=== PATIENT | female | born 1950 | race Caucasian/White ===

== ENCOUNTER 2018-06-25 14:30 | Outpatient (REF) | payer MEDICARE, SELFPAY ==
[2018-06-25 21:57] LABS: Abs Immature Grans 0.01 k/cumm (0.0-0.09); Absolute Basophil Count 0.02 k/cumm (0.0-0.2); Absolute Eosinophil Count 0.16 k/cumm (0.0-0.7); Absolute Monocyte Count 0.83 k/cumm (0.11-0.7); Absolute Neutrophil Count 5.18 k/cumm (1.2-6.7); Basophils % 0.2; Eosinophils % 1.9; HCT 35.6 % (36.0-46.0); Immature Grans % 0.1; Lymphocytes % 27.1; Mean Corp. HGB Concentration 30.9 g/dL (32.0-36.0); Mean Corpuscular Hemoglobin 25.7 pg (27.0-33.0); Mean Corpuscular Volume 83.2 fL (80-95); Mean Platelet Volume 12.1 fL (8.0-11.0); Monocytes % 9.8; Neutrophils % 60.9; Platelet Count 376 x1000/uL (130-400); RBC 4.28 m/cumm (4.00-5.20); RBC Distribution Width 16.8 % (11.7-14.6)
[2018-06-25 22:17] LABS: ALT 21 U/L (12-78); AST 16 U/L (15-37); Albumin 3.6 g/dL (3.4-5.0); Alkaline Phosphatase 131 U/L (46-116); Anion Gap 11.7 mmol/L (3-11); BUN 12 mg/dL (7-18); Bilirubin, Total 0.3 mg/dL (0.2-1.0); CO2 28.3 mmol/L (21.0-32.0); CREATININE 0.76 mg/dL (0.55-1.02); Calcium 9.4 mg/dL (8.5-10.1); Chloride 100 mmol/L (98-107); Glucose 80 mg/dL (70-100); Potassium 4.3 mmol/L (3.5-5.1); Sodium 140 mmol/L (136-145); Total Protein 7.3 g/dL (6.4-8.2)
== END 2018-06-25 14:50 ==
LOC: NCHCN 14:30
PROVIDERS: Visit Provider Registered Nurse
DX: R82.90 Unspecified abnormal findings in urine (principal)
CPT/HCPCS: 80053; 87077; 85025; 87086; 87186

== ENCOUNTER 2018-07-05 12:02 | Outpatient (CLI) | payer MEDICARE, MEDICAID, SELFPAY ==
[2018-07-05] MEDS: Omnipaque 350 MG/ML 50 ML BTL PO (12:41)
[2018-07-05] MEDS: Breeza Beverage 473 ML BTL PO (12:42)
--- NOTE | 2018-07-05 13:06 | DI.CT_ITS ---
SYMPTOMS/DIAGNOSIS: ? LIVER LESION OR POSSIBLE ADJACENT BOWEL ON US, K76.89 CT OF THE ABDOMEN: Comparison is made with abdominal ultrasound from dated June,, which questioned a lesion in the left lobe of the liver. Images were performed from the lung bases through the aortic bifurcation after IV and oral contrast during arterial and venous phases. The patient is status post cholecystectomy. There is mild post cholecystectomy biliary dilatation. No liver lesion is identified. There is suture material throughout the fundus of the stomach that is related to gastric bypass. There is bowel directly adjacent to the left lobe of the liver. The spleen, pancreas and adrenals are unremarkable. There is a small cyst at the posterior right kidney. IMPRESSION: Mild biliary dilatation status post cholecystectomy. No evidence of a liver lesion.
== END 2018-07-05 12:22 ==
PROVIDERS: PCP Registered Nurse; Visit Provider Registered Nurse
DX: K76.89 Other specified diseases of liver (principal); K83.8 Other specified diseases of biliary tract; Z90.49 Acquired absence of other specified parts of digestive tract; Z98.84 Bariatric surgery status
CPT/HCPCS: 74160; Q9967

== ENCOUNTER 2018-11-27 15:38 | Emergency (ER) | payer OTHER, MEDICAID, SELFPAY ==
[2018-11-27 15:45] VITALS: BP 135/60; PULSE 83; RESP 18; TEMP 37.1; O2SAT 97
--- NOTE | 2018-11-27 15:53 | DI.CT_ITS ---
SYMPTOM/DIAGNOSIS: RT SIDED CHEST PAIN, UPPER ABD PAIN, S/P FALL CHEST/ABDOMEN/PELVIC CT: CT examination of the chest, abdomen and pelvis was performed with a bolus infusion of 100 cc's of Omnipaque 350. The lungs are clear. No pleural effusion or pneumothorax is seen. No mediastinal or hilar adenopathy. Bilateral shoulder prostheses noted in position, artifact obscures portions of the supraclavicular region. No evidence of mediastinal vascular injury. No mediastinal hematoma. There are bilateral hip prostheses. No vascular injury identified in the abdomen. Liver, spleen, pancreas and bile ducts are unremarkable. The patient is post cholecystectomy. No thoracic aortic aneurysm. No iliac artery aneurysm or injury. No evidence of bowel injury. No evidence of bowel obstruction. No significant abdominal wall hernia. No abdominal or pelvic adenopathy. DATE PULLER structures appear intact as visualized. There is no evidence of acute bony injury of the chest, abdomen or pelvis. CONCLUSION: No evidence of acute injury of the chest, abdomen or pelvis.
--- NOTE | 2018-11-27 15:56 | W.ED.GENAD ---
Discharge Plan Disposition Patient Disposition: HOME Condition: Good Discharge Details Chief Complaint: Chest/Rib Clinical Impression: Rib pain on right side, Rib lesion Primary Care Provider: PACO RIVERA ED Provider: Bakari Henry Home Meds and New Rx's Prescriptions: New cephalexin [Keflex] 500 mg capsule 500 mg PO BID 12 Days Qty: 24 RF: 0 lidocaine [Lidoderm] 1 PATCH patch 1 patch Topical Q24H Qty: 4 RF: 0 Continued acetaminophen [Acetaminophen Extra Strength] 500 mg Tablet PRNRF: 0 No Action omeprazole 20 mg Capsule,Delayed Release(Dr/Ec) 20 mg PO HS RF: 0 Discharge Instructions Instructions: Chest Wall Pain (ED) Additional Instructions: Please take the antibiotic as directed. Please follow-up promptly with your primary care provider for reassessment of the atypical rib lesion. Please use the incentive spirometer as directed and make sure that you are inhaling greater than 1200 cc, greater than 10-15 times per day. If you notice any worsening of your symptoms, or any new symptoms such as vomiting, diarrhea, fever, chills, shortness of breath, chest pain, numbness, weakness, or fainting , please return immediately to the emergency department for reevaluation. Please follow up with your primary care provider as soon as possible for reassessment and reevaluation. As always, it was a pleasure participating in your medical care today. Referrals: PACO RIVERA, MASTER BREWER [Primary Care Provider] - Medical Decision Making This is a pleasant 68-year-old female with a past medical history of orthopedic surgeries for her shoulders and knees, who presents for fall, landing on her right ribs. This occurred 3 to 4 days ago, she had mild pain at that time however when she was bending over today she noted a crack in her right chest, and has had severe pain since then. Exam demonstrates notable reproducible right-sided chest wall tenderness. Additionally she has some epigastric left and right upper abdominal quadrant tenderness on exam which is concerning. As the patient's age, and mechanism I do feel that further imaging is indicated especially with her abdominal tenderness in conjunction with a right rib pain. We will consult anesthesia for rib block, and reassess. 7:[address] scan has returned, there is an atypical sclerotic rib lesion over the patient's right eighth rib, which correlates clinically with the location of her pain and symptoms. Radiology identifies no other acute fractures or abnormalities per virtual radiology. The patient was given a rib block by anesthesia and she tolerated this extremely well, and has near complete resolution of her pain. No clinical or radiographic findings of pneumothorax, or severe pulmonary contusion or other abnormality. The patient is feeling much better. She feels ready to go home. Urinalysis does demonstrate evidence of mild UTI which does correlate with mild symptoms of urinary frequency that she is now describing. With no signs of other significant trauma, I do not feel that any additional imaging or management is needed at this time. With the atypical component of her sclerotic lesion I do feel that the patient would benefit from close follow-up with her PCP to discuss further evaluation of potential malignancy which is less likely versus well-healed old fracture. We discussed red flags which to return the importance of close follow-up I have extensively reviewed the treatment plan and discharge instructions with the patient. I have addressed all patient concerns at this time. The patient was made aware of what symptoms to monitor for that would warrant a return to the emergency department. Discussed the plan with the patient, they demonstrate verbal understanding and agreement with our assessment and plan at this time. Additionally the patient has tolerated Keflex multiple times in the past without any difficulty or reaction. EXAM: CT Chest With Contrast EXAM DATE/TIME: 11/27/2018 3:55 PM CLINICAL HISTORY: 68 years old, female; Signs and symptoms; Other: Right sided chest pain and upper abd pain, fall; Prior surgery; Surgery date: 6+ months; Surgery type: Gastric bypass TECHNIQUE: Imaging protocol: Axial computed tomography images of the chest with intravenous contrast. Coronal and sagittal reformatted images were created and reviewed. Radiation optimization: All CT scans at this facility use at least one of these dose optimization techniques: automated exposure control; mA and/or kV adjustment per patient size (includes targeted exams where dose is matched to clinical indication); or iterative reconstruction. COMPARISON: No relevant prior studies available. FINDINGS: Lungs: There is no significant airspace consolidation. There is no evidence of an endobronchial lesion. There is no suspicious pulmonary parenchymal mass or nodule identified Pleural space: Effusion or pneumothorax is not seen Heart: Unremarkable. No cardiomegaly. No pericardial effusion. Mediastinum: Small hiatal hernia is seen at the GE junction. Aorta: The aorta is non-aneurysmal. There is no acute aortic abnormality. Lymph nodes: No significant adenopathy is identified. Bones/joints: There is artifact from bilateral humeral prostheses. There is dextroconvex thoracic scoliosis. Degenerative changes are seen in the thoracic spine. There is a nonspecific sclerotic focus involving the right eighth lateral rib. No acute or displaced rib fracture is identified. Soft tissues: Subcutaneous soft tissues are unremarkable MAGYMELISSANIYA Preliminary Radiology Report Page 2 of 3 Upper abdomen: For further evaluation of the abdomen please see below IMPRESSION: No acute findings EXAM: CT Abdomen and Pelvis With Contrast EXAM DATE/TIME: 11/27/2018 3:55 PM CLINICAL HISTORY: 68 years old, female; Signs and symptoms; Other: Right sided chest pain and upper abd pain, fall; Prior surgery; Surgery date: 6+ months; Surgery type: Gastric bypass TECHNIQUE: Imaging protocol: Axial computed tomography images of the abdomen and pelvis with intravenous contrast. Coronal and sagittal reformatted images were created and reviewed. Radiation optimization: All CT scans at this facility use at least one of these dose optimization techniques: automated exposure control; mA and/or kV adjustment per patient size (includes targeted exams where dose is matched to clinical indication); or iterative reconstruction. Contrast material: OMNIPAQUE 350; Contrast volume: 100 ml; Contrast route: IV; COMPARISON: No relevant prior studies available. FINDINGS: ABDOMEN: Liver: No focal intrahepatic masses identified. The liver is prominent in size. The superior to inferior extent of the right lobe is a 21 cm. Gallbladder and bile ducts: There has been prior cholecystectomy. There is prominence of the extrahepatic bile duct and mild intrahepatic biliary ductal dilatation. Common bile duct measures approximately 13 mm in maximum diameter on series [address] evidence of choledocholithiasis Pancreas: Pancreas is unremarkable Spleen: Unremarkable. No splenomegaly. Adrenals: Adrenals are unremarkable Kidneys and ureters: No radiopaque urinary tract calculi. No evidence of hydronephrosis. There is a small cyst noted posteriorly in the right kidney measuring approximately 8 mm in diameter on series 4 image 70. Stomach and bowel: Evaluation of the bowel is limited in the absence of oral contrast. Patient has had prior gastric surgery There is no discrete mass, obstruction or pneumatosis. There is NIYA LAU Preliminary Radiology Report CRIMINAL PROFILER (QA) DISCREPANCY? If there is a discrepancy between the preliminary and final interpretation, please notify [facility] via [email or web address]. If you do not have access to our QA portal, call our QA team at [phone] CONFIDENTIALITY STATEMENT This report is intended only for the use of the referring physician, and only in accordance with law, If you received this in error, call [phone] Page 3 of 3 diverticulosis particularly involving the sigmoid colon. No definite pericolonic inflammatory changes are identified suggest acute diverticulitis. Appendix: The appendix is not definitely visualized but there are no inflammatory changes in the right lower quadrant to suggest acute appendicitis PELVIS: Bladder: Bladder is unremarkable Reproductive: Uterus, adnexa are unremarkable ABDOMEN and PELVIS: Intraperitoneal space: No free fluid or focal collections or free intraperitoneal air Bones/joints: Evaluation of the pelvis is limited do to artifact from bilateral hip replacements. There is mild levoconvex lumbar scoliosis. There are findings consistent with lumbar spondylosis, degenerative disc disease. There is no acute bony abnormality Degenerative changes of the lumbar spine lead to narrowing of the canal at the level of the disc spaces most prominent at L3-4, L4-5 Soft tissues: Subcutaneous soft tissues are unremarkable. Vasculature: Aorta is nonaneurysmal Lymph nodes: No significant adenopathy IMPRESSION: 1. Prior cholecystectomy. Prominence of the extrahepatic common bile duct and mild prominence of intrahepatic ducts. No CT evidence of choledocholithiasis. 2. Hepatomegaly but no evidence of discrete intrahepatic mass 3. Diverticulosis without evidence of diverticulitis 4. Thoracolumbar spondylosis, disc disease. No acute bony abnormality Thank you for allowing us to participate in the care of your patient. Dictated and Authenticated by: Caroline Blanco MD HPI General Date/Time Provider Initiated Documentation: 11/27/18 15:42. HPI Narrative: This is a 68-year-old female with no significant past medical history who presents today for evaluation of right-sided hip and abdominal pain. Patient states that 3 days ago she had a mechanical slip fall and landed on her right ribs. She had some notable pain at that time, however within the last 24 hours she was bending over and heard a crack, and then had notable pain in her right lower chest at that time. She denies any vomiting or diarrhea. She denies any numbness tingling weakness. Pain is made worse with movement palpation. She has no other complaints at this time. She is a retired nurse. She denies any modifying factors. Related Data Home Medications Medication Instructions Recorded Confirmed acetaminophen [Acetaminophen Extra PRN 11/27/18 Strength] cephalexin [Keflex] 500 mg PO BID 12 Days #24 cap 11/27/18 lidocaine [Lidoderm] 1 patch TOPICAL Q24H #4 patch 11/27/18 omeprazole 20 mg PO HS 11/27/18 11/27/18 Previous Rx's Medication Instructions Recorded cephalexin [Keflex] 500 mg PO BID 12 Days #24 cap 11/27/18 lidocaine [Lidoderm] 1 patch TOPICAL Q24H #4 patch 11/27/18 Allergies Allergy/AdvReac Type Severity Reaction Status Date / Time penicillin V Allergy Severe Anaphylaxsi Unverified 11/27/18 15:51 s General Stated Complaint: Chest/Rib MARLIN: 3 Review of Systems Review of Systems All systems reviewed & are unremarkable except as noted in HPI and below PFSH Social History Smoking/Tobacco Use Status: Former Tobacco Use Alcohol Intake: current Alcohol Intake frequency: holidays/special occasions only Substance use type: does not use Do you feel safe at home: Yes Do you feel safe in your relationship?: Yes Exam Narrative Exam Narrative: 1.Const: Well-nourished, Well-developed, appearing stated age 2.Eyes: PERRL, no conjunctival injection, and symmetrical lids. 3.ENT: Atraumatic external nose and ears. Moist MM. Neck: Symmetric, trachea midline, No thyromegaly. Patient demonstrates intact dentition with no signs of tooth avulsion or fracture, no signs of jaw deformity, no evidence of a LeFort's fracture, with an intact palate, nose and orbital region. There is no evidence of a nasal septal hematoma. No proptosis. Jaw closes symmetrically. Airway is clear. 4.CVS: Regular rate and rhythm, Normal s1 and s2. No murmurs, carotid bruits, rubs, or gallops. Radial pulses 2+ bilaterally and symmetric. Dorsalis pedis pulses 2+ bilaterally and symmetric. 2+ capillary refill. No evidence of distant heart sounds. No extremity edema. No evidence of gross hemorrhage. 5.RESP: Airway clear, no obstructions. No abrasions or ecchymosis. Chest movement symmetric with respirations. Notable chest wall tenderness on palpation of the right lower chest, minimal bruit. Trachea midline. No crepitus. No step offs. No paradoxical movements. Lungs are clear to auscultation bilaterally. No rales, rhonchi, wheezing or stridor. Breath sound symmetric. No Sucking chest wounds. No clinical evidence of significant chest trauma. 6.GI: Mild right upper quadrant abdominal tenderness as well as left upper quadrant abdominal tenderness. No guarding or rebound. No pain at McBurney's point, no pain in the left lower quadrant. 7.MSK: No gross deformities or discolorations or lesions. Tolerates full range of motion of extremities without tenderness except for when moving the right upper extremity causing movement over her right ribs peer all compartments of upper and lower extremities are soft with no tenderness. Vascular exam demonstrates brisk capillary refill and intact pulses in all extremities. Pelvic exam demonstrates a stable pelvis, nontender to lateral compression and palpation of symphysis pubis. 8.Skin: Warm, Dry. No rashes or lesions. 9.Neuro: banquet supervisor II-XII grossly intact. Sensation grossly intact, no focal neurologic deficits. 10.Psych: (AAO) x3. Appropriate mood and affect Course Vital Signs Temperature 37.1 C 11/27/18 15:45 Pulse 83 11/27/18 15:45 Respiratory Rate 18 11/27/18 15:45 Blood Pressure 135/60 11/27/18 15:45 Pulse Oximetry 97 11/27/18 15:45 Temperature 37.1 C 11/27/18 15:45 Temperature Source Temporal Artery Scan 11/27/18 15:45 Pulse 83 11/27/18 15:45 Respiratory Rate 18 11/27/18 15:45 Blood Pressure 135/60 11/27/18 15:45 Pulse Oximetry 97 11/27/18 15:45 Oxygen Delivery Method Room Air 11/27/18 15:45 Oxygen Flow Rate 0 11/27/18 15:45 Pain Level 10 11/27/18 15:45
--- NOTE | 2018-11-27 16:04 | ED.GENADUL_ITS ---
Discharge Plan Disposition Patient Disposition: HOME Condition: Good Discharge Details Chief Complaint: Chest/Rib Clinical Impression: Rib pain on right side, Rib lesion Primary Care Provider: PACO RIVERA ED Provider: Bakari Henry Home Meds and New Rx's Prescriptions: New cephalexin [Keflex] 500 mg capsule 500 mg PO BID 12 Days Qty: 24 RF: 0 lidocaine [Lidoderm] 1 PATCH patch 1 patch Topical Q24H Qty: 4 RF: 0 Continued acetaminophen [Acetaminophen Extra Strength] 500 mg Tablet PRNRF: 0 No Action omeprazole 20 mg Capsule,Delayed Release(Dr/Ec) 20 mg PO HS RF: 0 Discharge Instructions Instructions: Chest Wall Pain (ED) Additional Instructions: Please take the antibiotic as directed. Please follow-up promptly with your primary care provider for reassessment of the atypical rib lesion. Please use the incentive spirometer as directed and make sure that you are inhaling greater than 1200 cc, greater than 10-15 times per day. If you notice any worsening of your symptoms, or any new symptoms such as vomiting, diarrhea, fever, chills, shortness of breath, chest pain, numbness, weakness, or fainting , please return immediately to the emergency department for reevaluation. Please follow up with your primary care provider as soon as possible for reassessment and reevaluation. As always, it was a pleasure participating in your medical care today. Referrals: PACO RIVERA, [employer] [Primary Care Provider] - Medical Decision Making This is a pleasant 68-year-old female with a past medical history of orthopedic surgeries for her shoulders and knees, who presents for fall, landing on her right ribs. This occurred 3 to 4 days ago, she had mild pain at that time however when she was bending over today she noted a crack in her right chest, and has had severe pain since then. Exam demonstrates notable reproducible right-sided chest wall tenderness. Additionally she has some epigastric left and right upper abdominal quadrant tenderness on exam which is concerning. As the patient's age, and mechanism I do feel that further imaging is indicated especially with her abdominal tenderness in conjunction with a right rib pain. We will consult anesthesia for rib block, and reassess. 7:[address] scan has returned, there is an atypical sclerotic rib lesion over the patient's right eighth rib, which correlates clinically with the location of her pain and symptoms. Radiology identifies no other acute fractures or abnormalities per virtual radiology. The patient was given a rib block by anesthesia and she tolerated this extremely well, and has near complete resolution of her pain. No clinical or radiographic findings of pneumothorax, or severe pulmonary contusion or other abnormality. The patient is feeling much better. She feels ready to go home. Urinalysis does demonstrate evidence of mild UTI which does correlate with mild symptoms of urinary frequency that she is now describing. With no signs of other significant trauma, I do not feel that any additional imaging or management is needed at this time. With the atypical component of her sclerotic lesion I do feel that the patient would benefit from close follow-up with her PCP to discuss further evaluation of potential malignancy which is less likely versus well-healed old fracture. We discussed red flags which to return the importance of close follow-up I have extensively reviewed the treatment plan and discharge instructions with the patient. I have addressed all patient concerns at this time. The patient was made aware of what symptoms to monitor for that would warrant a return to the emergency department. Discussed the plan with the patient, they demonstrate verbal understanding and agreement with our assessment and plan at this time. Additionally the patient has tolerated Keflex multiple times in the past without any difficulty or reaction. EXAM: CT Chest With Contrast EXAM DATE/TIME: 11/27/2018 3:55 PM CLINICAL HISTORY: 68 years old, female; Signs and symptoms; Other: Right sided chest pain and upper abd pain, fall; Prior surgery; Surgery date: 6+ months; Surgery type: Gastric bypass TECHNIQUE: Imaging protocol: Axial computed tomography images of the chest with intravenous contrast. Coronal and sagittal reformatted images were created and reviewed. Radiation optimization: All CT scans at this facility use at least one of these dose optimization techniques: automated exposure control; mA and/or kV adjustment per patient size (includes targeted exams where dose is matched to clinical indication); or iterative starr nstruction. COMPARISON: No relevant prior studies available. FINDINGS: Lungs: There is no significant airspace consolidation. There is no evidence of an endobronchial lesion. There is no suspicious pulmonary parenchymal mass or nodule identified Pleural space: Effusion or pneumothorax is not seen Heart: Unremarkable. No cardiomegaly. No pericardial effusion. Mediastinum: Small hiatal hernia is seen at the GE junction. Aorta: The aorta is non-aneurysmal. There is no acute aortic abnormality. Lymph nodes: No significant adenopathy is identified. Bones/joints: There is artifact from bilateral humeral prostheses. There is dextroconvex thoracic scoliosis. Degenerative changes are seen in the thoracic spine. There is a nonspecific sclerotic focus involving the right eighth lateral rib. No acute or displaced rib fracture is identified. Soft tissues: Subcutaneous soft tissues are unremarkable NIYA LAU Preliminary Radiology Report Page 2 of 3 Upper abdomen: For further evaluation of the abdomen please see below IMPRESSION: No acute findings EXAM: CT Abdomen and Pelvis With Contrast EXAM DATE/TIME: 11/27/2018 3:55 PM CLINICAL HISTORY: 68 years old, female; Signs and symptoms; Other: Right sided chest pain and upper abd pain, fall; Prior surgery; Surgery date: 6+ months; Surgery type: Gastric bypass TECHNIQUE: Imaging protocol: Axial computed tomography images of the abdomen and pelvis with intravenous contrast. Coronal and sagittal reformatted images were created and reviewed. Radiation optimization: All CT scans at this facility use at least one of these dose optimization techniques: automated exposure control; mA and/or kV adjustment per patient size (includes targeted exams where dose is matched to clinical indication); or iterative reconstruction. Contrast material: OMNIPAQUE 350; Contrast volume: 100 ml; Contrast route: IV; COMPARISON: No relevant prior studies available. FINDINGS: ABDOMEN: Liver: No focal intrahepatic masses identified. The liver is prominent in size. The superior to inferior extent of the right lobe is a 21 cm. Gallbladder and bile ducts: There has been prior cholecystectomy. There is prominence of the extrahepatic bile duct and mild intrahepatic biliary ductal dilatation. Common bile duct measures approximately 13 mm in maximum diameter on series [address] evidence of choledocholithiasis Pancreas: Pancreas is unremarkable Spleen: Unremarkable. No splenomegaly. Adrenals: Adrenals are unremarkable Kidneys and ureters: No radiopaque urinary tract calculi. No evidence of hydronephrosis. There is a small cyst noted posteriorly in the right kidney measuring approximately 8 mm in diameter on series 4 image 70. Stomach and bowel: Evaluation of the bowel is limited in the absence of oral contrast. Patient has had prior gastric surgery There is no discrete mass, obstruction or pneumatosis. There is NIYA LAU Preliminary Radiology Report CLINICAL CYTOGENETICS DIRECTOR (QA) DISCREPANCY? If there is a discrepancy between the preliminary and final interpretation, please notify [facility] via [email or web address]. If you do not have access to our QA portal, call our QA team at [phone] CONFIDENTIALITY STATEMENT This report is intended only for the use of the referring physician, and only in accordance with law, If you received this in error, call [phone] Page 3 of 3 diverticulosis particularly involving the sigmoid colon. No definite pericolonic inflammatory changes are identified suggest acute diverticulitis. Appendix: The appendix is not definitely visualized but there are no inflammatory changes in the right lower quadrant to suggest acute appendicitis PELVIS: Bladder: Bladder is unremarkable Reproductive: Uterus, adnexa are unremarkable ABDOMEN and PELVIS: Intraperitoneal space: No free fluid or focal collections or free intraperitoneal air Bones/joints: Evaluation of the pelvis is limited do to artifact from bilateral hip replacements. There is mild levoconvex lumbar scoliosis. There are findings consistent with lumbar spondylosis, degenerative disc disease. There is no acute bony abnormality Degenerative changes of the lumbar spine lead to narrowing of the canal at the level of the disc spaces most prominent at L3-4, L4-5 Soft tissues: Subcutaneous soft tissues are unremarkable. Vasculature: Aorta is nonaneurysmal Lymph nodes: No significant adenopathy IMPRESSION: 1. Prior cholecystectomy. Prominence of the extrahepatic common bile duct and mild prominence of intrahepatic ducts. No CT evidence of choledocholithiasis. 2. Hepatomegaly but no evidence of discrete intrahepatic mass 3. Diverticulosis without evidence of diverticulitis 4. Thoracolumbar spondylosis, disc disease. No acute bony abnormality Thank you for allowing us to participate in the care of your patient. Dictated and Authenticated by: Caroline Blanco MD [facility] General Date/Time Provider Initiated Documentation: 11/27/18 15:42 . HPI Narrative: This is a 68-year-old female with no significant past medical history who presents today for evaluation of right-sided hip and abdominal pain. Patient states that 3 days ago she had a mechanical slip fall and landed on her right ribs. She had some notable pain at that time, however within the last 24 hours she was bending over and heard a crack, and then had notable pain in her right lower chest at that time. She denies any vomiting or diarrhea. She omega es any numbness tingling weakness. Pain is made worse with movement palpation. She has no other complaints at this time. She is a retired nurse. She denies any modifying factors. Related Data Home Medications Medication Instructions Recorded Confirmed acetaminophen [Acetaminophen Extra PRN 11/27/18 Strength] cephalexin [Keflex] 500 mg PO BID 12 Days #24 cap 11/27/18 lidocaine [Lidoderm] 1 patch TOPICAL Q24H #4 patch 11/27/18 omeprazole 20 mg PO HS 11/27/18 11/27/18 Previous Rx's Medication Instructions Recorded cephalexin [Keflex] 500 mg PO BID 12 Days #24 cap 11/27/18 lidocaine [Lidoderm] 1 patch TOPICAL Q24H #4 patch 11/27/18 Allergies Allergy/AdvReac Type Severity Reaction Status Date / Time penicillin V Allergy Severe Anaphylaxsi Unverified 11/27/18 15:51 s General Stated Complaint: Chest/Rib MARLIN: 3 Review of Systems Review of Systems All systems reviewed & are unremarkable except as noted in HPI and below PFSH Social History Smoking/Tobacco Use Status: Former Tobacco Use Alcohol Intake: current Alcohol Intake frequency: holidays/special occasions only Substance use type: does not use Do you feel safe at home: Yes Do you feel safe in your relationship?: Yes Exam Narrative Exam Narrative: 1.Const: Well-nourished, Well-developed, appearing stated age 2.Eyes: PERRL, no conjunctival injection, and symmetrical lids. 3.ENT: Atraumatic external nose and ears. Moist MM. Neck: Symmetric, trachea midline, No thyromegaly. Patient demonstrates intact dentition with no signs of tooth avulsion or fracture, no signs of jaw deformity, no evidence of a LeFort's fracture, with an intact palate, nose and orbital region. There is no evidence of a nasal septal hematoma. No proptosis. Jaw closes symmetrically. Airway is clear. 4.CVS: Regular rate and rhythm, Normal s1 and s2. No murmurs, carotid bruits, rubs, or gallops. Radial pulses 2+ bilaterally and symmetric. Dorsalis pedis pulses 2+ bilaterally and symmetric. 2+ capillary refill. No evidence of distant heart sounds. No extremity edema. No evidence of gross hemorrhage. 5.RESP: Airway clear, no obstructions. No abrasions or ecchymosis. Chest movement symmetric with respirations. Notable chest wall tenderness on palpation of the right lower chest, minimal bruit. Trachea midline. No crepitus. No step offs. No paradoxical movements. Lungs are clear to auscultation bilaterally. No rales, rhonchi, wheezing or stridor. Breath sound symmetric. No Sucking chest wounds. No clinical evidence of significant chest trauma. 6.GI: Mild right upper quadrant abdominal tenderness as well as left upper quadrant abdominal tenderness. No guarding or rebound. No pain at McBurney's point, no pain in the left lower quadrant. 7.MSK: No gross deformities or discolorations or lesions. Tolerates full range of motion of extremities without tenderness except for when moving the right upper extremity causing movement over her right ribs peer all compartments of upper and lower extremities are soft with no tenderness. Vascular exam demonstrates brisk capillary refill and intact pulses in all extremities. Pelvic exam demonstrates a stable pelvis, nontender to lateral compression and palpation of symphysis pubis. 8.Skin: Warm, Dry. No rashes or lesions. 9.Neuro: director specialty II-XII grossly intact. Sensation grossly intact, no focal neurologic deficits. 10.Psych: (AAO) x3. Appropriate mood and affect Course Vital Signs Temperature 37.1 C 11/27/18 15:45 Pulse 83 11/27/18 15:45 Respiratory Rate 18 11/27/18 15:45 Blood Pressure 135/60 11/27/18 15:45 Pulse Oximetry 97 11/27/18 15:45 Temperature 37.1 C 11/27/18 15:45 Temperature Source Temporal Artery Scan 11/27/18 15:45 Pulse 83 11/27/18 15:45 Respiratory Rate 18 11/27/18 15:45 Blood Pressure 135/60 11/27/18 15:45 Pulse Oximetry 97 11/27/18 15:45 Oxygen Delivery Method Room Air 11/27/18 15:45 Oxygen Flow Rate 0 11/27/18 15:45 Pain Level 10 11/27/18 15:45
[2018-11-27] MEDS: Lidocaine 5% Patch 1 PATCH TP (16:11)
[2018-11-27] MEDS: Acetaminophen 500 MG TAB 1000 MG PO (16:11)
[2018-11-27 16:15] LABS: Absolute Basophil Count 0.03 k/cumm (0.0-0.2); Absolute Eosinophil Count 0.41 k/cumm (0.0-0.7); Absolute Lymphocyte Count 2.18 k/cumm (1.2-3.4); Absolute Monocyte Count 0.74 k/cumm (0.11-0.7); Absolute Neutrophil Count 4.23 k/cumm (1.2-6.7); Basophils % 0.4; Eosinophils % 5.4; HCT 40.2 % (36.0-46.0); Lymphocytes % 28.7; Mean Corp. HGB Concentration 32.3 g/dL (32.0-36.0); Mean Corpuscular Hemoglobin 28.8 pg (27.0-33.0); Mean Corpuscular Volume 88.9 fL (80-95); Mean Platelet Volume 10.4 fL (8.0-11.0); Monocytes % 9.7; Neutrophils % 55.8; Platelet Count 306 x1000/uL (130-400); RBC 4.52 m/cumm (4.00-5.20); RBC Distribution Width 15.6 % (11.7-14.6); White Blood Cell Count 7.59 k/cumm (4.4-10.8)
[2018-11-27 16:29] LABS: ALT 28 U/L (12-78); AST 19 U/L (15-37); Albumin 3.3 g/dL (3.4-5.0); Alkaline Phosphatase 118 U/L (46-116); Anion Gap 9.8 mmol/L (3-11); BUN 13 mg/dL (7-18); Bilirubin, Total 0.2 mg/dL (0.2-1.0); CO2 27.2 mmol/L (21.0-32.0); CREATININE 0.85 mg/dL (0.55-1.02); Chloride 107 mmol/L (98-107); Glucose 102 mg/dL (70-100); Sodium 144 mmol/L (136-145); Total Protein 7.1 g/dL (6.4-8.2)
[2018-11-27 16:38] LABS: Lipase 152 U/L (73-393)
[2018-11-27] MEDS: Omnipaque 350 MG/ML 100 ML BTL IJ (17:02)
[2018-11-27] MEDS: Normal Saline Flush 10 ML SYR IVP (17:03)
[2018-11-27 17:11] LABS: Bilirubin Negative (Negative); Blood Negative (Negative); Clarity Sl Cloudy; Glucose Negative (Negative); Ketones Negative (Negative); Leukocyte Esterase Trace (Negative); Nitrite Positive (Negative); Specific Gravity 1.015 (1.005-1.025); Urobilinogen 0.2 EU/dL (Up TO 0.2)
[2018-11-27 17:23] LABS: Epithelial Cells Rare HPF (Negative); RBC Negative (0-2)
[2018-11-27 17:24] LABS: Bacteria Many HPF (Negative); C & S Indicated? Yes; Casts Negative LPF (Negative); Crystals Negative HPF (Negative); Mucus Negative (Negative); Other Cells Negative (Negative)
--- NOTE | 2018-11-27 17:31 | DI.VRAD_ITS ---
Addendum created by Caroline Blanco MD on 11/27/2018 5:39:23 PM EDT Case discussed with Dr. Henry at 4:39 PM central time Initial report created on 11/27/2018 5:30:43 PM EDT EXAM: CT Chest With Contrast EXAM DATE/TIME: 11/27/2018 3:55 PM CLINICAL HISTORY: 68 years old, female; Signs and symptoms; Other: Right sided chest pain and upper abd pain, fall; Prior surgery; Surgery date: 6+ months; Surgery type: Gastric bypass TECHNIQUE: Imaging protocol: Axial computed tomography images of the chest with intravenous contrast. Coronal and sagittal reformatted images were created and reviewed. Radiation optimization: All CT scans at this facility use at least one of these dose optimization techniques: automated exposure control; mA and/or kV adjustment per patient size (includes targeted exams where dose is matched to clinical indication); or iterative reconstruction. COMPARISON: No relevant prior studies available. FINDINGS: Lungs: There is no significant airspace consolidation. There is no evidence of an endobronchial lesion. There is no suspicious pulmonary parenchymal mass or nodule identified Pleural space: Effusion or pneumothorax is not seen Heart: Unremarkable. No cardiomegaly. No pericardial effusion. Mediastinum: Small hiatal hernia is seen at the GE junction. Aorta: The aorta is non-aneurysmal. There is no acute aortic abnormality. Lymph nodes: No significant adenopathy is identified. Bones/joints: There is artifact from bilateral humeral prostheses. There is dextroconvex thoracic scoliosis. Degenerative changes are seen in the thoracic spine. There is a nonspecific sclerotic focus involving the right eighth lateral rib. No acute or displaced rib fracture is identified. Soft tissues: Subcutaneous soft tissues are unremarkable Upper abdomen: For further evaluation of the abdomen please see below IMPRESSION: No acute findings EXAM: CT Abdomen and Pelvis With Contrast EXAM DATE/TIME: 11/27/2018 3:55 PM CLINICAL HISTORY: 68 years old, female; Signs and symptoms; Other: Right sided chest pain and upper abd pain, fall; Prior surgery; Surgery date: 6+ months; Surgery type: Gastric bypass TECHNIQUE: Imaging protocol: Axial computed tomography images of the abdomen and pelvis with intravenous contrast. Coronal and sagittal reformatted images were created and reviewed. Radiation optimization: All CT scans at this facility use at least one of these dose optimization techniques: automated exposure control; mA and/or kV adjustment per patient size (includes targeted exams where dose is matched to clinical indication); or iterative reconstruction. Contrast material: OMNIPAQUE 350; Contrast volume: 100 ml; Contrast route: IV; COMPARISON: No relevant prior studies available. FINDINGS: ABDOMEN: Liver: No focal intrahepatic masses identified. The liver is prominent in size. The superior to inferior extent of the right lobe is a 21 cm. Gallbladder and bile ducts: There has been prior cholecystectomy. There is prominence of the extrahepatic bile duct and mild intrahepatic biliary ductal dilatation. Common bile duct measures approximately 13 mm in maximum diameter on series [address] evidence of choledocholithiasis Pancreas: Pancreas is unremarkable Spleen: Unremarkable. No splenomegaly. Adrenals: Adrenals are unremarkable Kidneys and ureters: No radiopaque urinary tract calculi. No evidence of hydronephrosis. There is a small cyst noted posteriorly in the right kidney measuring approximately 8 mm in diameter on series 4 image 70. Stomach and bowel: Evaluation of the bowel is limited in the absence of oral contrast. Patient has had prior gastric surgery There is no discrete mass, obstruction or pneumatosis. There is diverticulosis particularly involving the sigmoid colon. No definite pericolonic inflammatory changes are identified suggest acute diverticulitis. Appendix: The appendix is not definitely visualized but there are no inflammatory changes in the right lower quadrant to suggest acute appendicitis PELVIS: Bladder: Bladder is unremarkable Reproductive: Uterus, adnexa are unremarkable ABDOMEN and PELVIS: Intraperitoneal space: No free fluid or focal collections or free intraperitoneal air Bones/joints: Evaluation of the pelvis is limited do to artifact from bilateral hip replacements. There is mild levoconvex lumbar scoliosis. There are findings consistent with lumbar spondylosis, degenerative disc disease. There is no acute bony abnormality Degenerative changes of the lumbar spine lead to narrowing of the canal at the level of the disc spaces most prominent at L3-4, L4-5 Soft tissues: Subcutaneous soft tissues are unremarkable. Vasculature: Aorta is nonaneurysmal Lymph nodes: No significant adenopathy IMPRESSION: 1. Prior cholecystectomy. Prominence of the extrahepatic common bile duct and mild prominence of intrahepatic ducts. No CT evidence of choledocholithiasis. 2. Hepatomegaly but no evidence of discrete intrahepatic mass 3. Diverticulosis without evidence of diverticulitis 4. Thoracolumbar spondylosis, disc disease. No acute bony abnormality Dictated and Authenticated by: Caroline Blanco MD. Ordering:TUYET Villegas MD
[2018-11-27] MEDS: Bupivacaine 0.25% Pres-Free 10 ML VIAL (17:40)
[2018-11-27] MEDS: Bupivacaine LIPOSOME/PF 133 MG/10 ML VIAL IJ (17:40)
[2018-11-27 18:41] VITALS: BP 112/73; PULSE 63; RESP 16; TEMP 36.5
[2018-11-27] MEDS: Ketorolac 15 MG/ML VIAL IVP (18:58)
[2018-11-27 19:11] VITALS: BP 115/80; PULSE 60; RESP 16; TEMP 36.8; O2SAT 98
[2018-11-27] MEDS: Cephalexin 500 MG CAP PO (19:11)
== END 2018-11-27 19:30 | disposition home or self-care (01) ==
PROVIDERS: Emergency Provider Student in an Organized Health Care Education/Training Program; PCP Registered Nurse
DX: R07.81 Pleurodynia (principal); R10.13 Epigastric pain
CPT/HCPCS: 74177; 80053; 83690; 87077; 96374; 96375; 99285; 71260; 81003; 81015; 85025; 87086; 87186; 99284; J1885; J3490

== ENCOUNTER 2019-01-07 10:49 | Outpatient (REF) | payer OTHER, MEDICAID, SELFPAY ==
[2019-01-07 21:42] LABS: C-Reactive Protein 0.57 mg/dL (0.0-0.3)
[2019-01-07 22:20] LABS: ESR 36 MM/HR (0-30)
[2019-01-09 09:50] LABS: Cyclic Citrullinated Peptide <2.5 U/mL (<5.0); Rheumatoid Factor <8 IU/mL (<12.5)
[2019-01-09 11:26] LABS: ANA Interpretation Positive (NEGAT); ANA Titer Pattern 1:320 Speckled
== END 2019-01-07 11:09 ==
LOC: NCHCN 10:49
PROVIDERS: PCP Registered Nurse; Visit Provider Registered Nurse
DX: M12.849 Other specific arthropathies, not elsewhere classified, unspecified hand (principal)
CPT/HCPCS: 85652; 86200; 86038; 86140; 86431

== ENCOUNTER 2019-02-05 15:42 | Outpatient (REF) | payer OTHER, MEDICAID, SELFPAY | END 2019-02-05 16:02 | LOC: NCHCN 15:42 | PROVIDERS: PCP Registered Nurse; Visit Provider Registered Nurse | DX: R35.0 Frequency of micturition (principal) | CPT/HCPCS: 87077; 87086; 87186 ==

== ENCOUNTER 2022-04-30 11:39 | Emergency (ER) | payer MEDICARE, MEDICAID, SELFPAY ==
[2022-04-30 11:44] VITALS: BP 133/74; PULSE 71; RESP 18; TEMP 36.8; O2SAT 96
--- NOTE | 2022-04-30 12:14 | ED.GENADUL_ITS ---
Discharge Plan Disposition Patient Disposition: HOME Condition: Stable Discharge Details Clinical Impression: Dental infection Primary Care Provider: Sheila Bruner ED Provider: Keshav Ridley Home Meds and New Rx's Prescriptions: New clindamycin HCl 300 mg capsule 300 mg PO TID 10 Days Qty: 30 0RF Continued omeprazole 20 mg Capsule,Delayed Release(Dr/Ec) 20 mg PO HS acetaminophen [Acetaminophen Extra Strength] 500 mg Tablet PRN lidocaine [Lidoderm] 1 PATCH patch 1 patch Topical Q24H Qty: 4 0RF diazepam 2 mg tablet 2 mg PO PRN PRN Label Comments: TAKE 1 TABLET BY MOUTH AN HOUR . OR 30 MINUTES PRIOR TO MRI estradiol 10 mcg tablet 10 mcg VAGINAL Myrbetriq 25 mg tablet extended release 24 hr 25 mg PO Label Comments: TAKE 1 TABLET BY MOUTH EVERY DAY Discharge Instructions Instructions: Dental Abscess (ED) Additional Instructions: Clindamycin as directed. Salt water swish and spit as tolerated. Warm compresses every 2 hours for 20 minutes. Please watch for new or worsening symptoms and return to the ER for any concerns. I have provided you with a local dental list, please contact everyone on the list tomorrow to establish outpatient dental care. I have also placed you on the care management list to help expedite outpatient primary care follow-up Medical Decision Making This is a 71-year-old female presenting for a left lower dental pain that she states began this morning. She reports allergic reaction to Pen-Vee K and requesting a strong antibiotic. She appears to have a dental infection, no pointing abscess. Will initiate clindamycin therapy. We will also provide the local dental list as well as place from the care management list that she can establish a local PCP. Clinically she appears well, nontoxic, airway is patent, manage her secretions w ithout difficulty. No trismus. Standard discharge and return precautions were provided. Patient understands, is agreeable to this plan, and has no additional questions or concerns upon discharge. This documentation was generated using [employer] system, please disregard any oddities of phrase or misspellings. Medical Records Medical records reviewed: Yes I reviewed the patient's medical records. HPI General Mode of arrival: ambulatory . Date/Time Provider Initiated Documentation: 04/30/22 11:51 . Limitations to Documentation: no limitations . Information obtained by: patient . History of Present Illness 71 year old F presents to the emergency department with the chief complaint of left lower dental infection, described as moderate, with intensity rated at 4. Quality is described as aching, and is localized to the mouth. Patient reports no radiation. Patient started experiencing this hour(s) (4) and it has been constant. No relieving factors improve symptom(s), No exacerbating factors reported . Patient notes no other symptoms.. Patient did receive the following treatments prior to arrival, none Related Data Home Medications Medication Instructions Recorded Confirmed acetaminophen 500 mg tablet PRN 11/27/18 (Acetaminophen Extra Strength) lidocaine 5 % topical patch 1 patch topical Q24H #4 patches 11/27/18 (Lidoderm) omeprazole 20 mg capsule,delayed 20 mg PO HS 11/27/18 11/27/18 release clindamycin HCl 300 mg capsule 300 mg PO TID 10 days #30 caps 04/30/22 diazepam 2 mg tablet 2 mg PO PRN PRN 04/30/22 04/30/22 estradiol 10 mcg vaginal tablet 10 mcg vaginal 04/30/22 mirabegron 25 mg tablet,extended 25 mg PO 04/30/22 release 24 hr (Myrbetriq) Previous Rx's Medication Instructions Recorded lidocaine 5 % topical patch 1 patch topical Q24H #4 patches 11/27/18 (Lidoderm) clindamycin HCl 300 mg capsule 300 mg PO TID 10 days #30 caps 04/30/22 Allergies Allergy/AdvReac Type Severity Reaction Status Date / Time penicillin V Allergy Severe Anaphylaxsi Unverified 04/30/22 11:46 s General Stated Complaint: DentalOral MARLIN: 4 Review of Systems Constitutional Constitutional: Denies fever(s) and Denies headache(s) ENT Ears, Nose, Mouth, and Throat: Denies headache(s) and Denies sore throat Integumentary/Breasts Skin/Breast: Denies erythema Neurologic Neurologic: Denies headache(s) PFSH All Active Problems Dental infection (Acute) Social History Smoking/Tobacco Use Status: Former Tobacco Use Smoking risk assessment performed?: Yes Alcohol Intake: current Alcohol Intake frequency: holidays/special occasions only Drug use: Never Substance use type: does not use Do you feel safe at home: Yes Do you feel safe in your relationship?: Yes Exam Const General: cooperative, healthy appearing, comfortable and no acute distress Orientation: alert and awake [facility] Head: normal to inspection, normocephalic and atraumatic Ears: external ears normal, TM's normal bilaterally and EAC's normal General nose exam: external nose normal Face images: 1. Swelling, tenderness. No erythema. No trismus. Skin is intact. There is mild induration without fluctuance or pointing abscess. Mouth: moist mucous membranes Teeth and gingiva: poor dentition Teeth image: 1. Point tenderness. No pointing abscess. Airway patent. No trismus. Throat: posterior oropharynx normal Eyes Conjunctivae: conjunctivae normal Neck Neck: normal visual inspection, full ROM, no lymphadenopathy, no meningeal signs, trachea midline, supple and nontender Resp Effort & Inspection: normal respiratory effort and able to speak in complete sentences Skin General skin exam: no rashes or lesions noted Neuro General: patient alert, patient awake, moves all extremities and no focal motor deficits Sensory Exam: no sensory deficits noted Psych Appearance: grossly normal Mental Status: mental status grossly normal Course Vital Signs Vital signs: Vital Signs Temperature 36.8 C 04/30/22 11:44 Pulse 71 04/30/22 11:44 Respiratory Rate 18 04/30/22 11:44 Blood Pressure 133/74 04/30/22 11:44 Pulse Oximetry 96 04/30/22 11:44 Temperature 36.8 C 04/30/22 11:44 Temperature Source Tympanic 04/30/22 11:44 Pulse 71 04/30/22 11:44 Respiratory Rate 18 04/30/22 11:44 Respiratory Effort Non-Labored 04/30/22 11:49 Blood Pressure 133/74 04/30/22 11:44 Blood Pressure Position Sitting 04/30/22 11:44 Pulse Oximetry 96 04/30/22 11:44 Oxygen Delivery Method Room Air 04/30/22 11:44 Oxygen Flow Rate 0 04/30/22 11:44
--- NOTE | 2022-04-30 12:17 | NUR.NOTE ---
Gave Care Management info to establish care with a PCP for routine care - ED Nursing Note:
== END 2022-04-30 12:22 | disposition home or self-care (01) ==
PROVIDERS: Emergency Provider Physician Assistant; PCP Registered Nurse
DX: K04.7 Periapical abscess without sinus (principal)
CPT/HCPCS: 99283; 99284

== ENCOUNTER 2022-10-30 20:09 | Outpatient (REF) | payer MEDICARE, MEDICAID, SELFPAY ==
[2022-10-30 22:37] LABS: Hemoglobin A1C 5.9 % (<5.7)
[2022-10-30 22:41] LABS: ALT 34 U/L (14-59); AST 21 U/L (15-37); Albumin 3.5 g/dL (3.4-5.0); Alkaline Phosphatase 125 U/L (46-116); Anion Gap 6.6 mmol/L (3-11); BUN 18 mg/dL (7-18); Bilirubin, Total 0.3 mg/dL (0.2-1.0); CO2 26.4 mmol/L (21.0-32.0); CREATININE 0.9 mg/dL (0.55-1.02); Calcium 9.3 mg/dL (8.5-10.1); Calculated LDL 94 mg/dL (<100); Chloride 109 mmol/L (98-107); Cholesterol 169 mg/dL (<200); Estimated GFR 67.92 (mL/min/1.73m2); Glucose 114 mg/dL (74-106); HDL Cholesterol 48 mg/dL (40-60); Potassium 4.3 mmol/L (3.5-5.1); Sodium 142 mmol/L (136-145); Total Protein 7.6 g/dL (6.4-8.2); Triglyceride 138 mg/dL (<150)
== END 2022-10-30 20:10 | disposition home or self-care (01) ==
LOC: NCHCN 20:09
PROVIDERS: PCP Registered Nurse; Visit Provider Nurse Practitioner Family
DX: N95.2 Postmenopausal atrophic vaginitis (principal); R35.0 Frequency of micturition; R94.5 Abnormal results of liver function studies; E66.9 Obesity, unspecified; R73.09 Other abnormal glucose
CPT/HCPCS: 80053; 80061; 83036

== ENCOUNTER 2023-08-14 10:40 | Outpatient (REF) | payer OTHER, SELFPAY ==
[2023-08-14 14:56] LABS: ALT 32 U/L (14-59); AST 27 U/L (15-37); Albumin 3.7 g/dL (3.4-5.0); Alkaline Phosphatase 126 U/L (46-116); Anion Gap 10.4 mmol/L (3-11); BUN 14 mg/dL (7-18); Bilirubin, Total 0.4 mg/dL (0.2-1.0); CO2 27.6 mmol/L (21.0-32.0); CREATININE 0.9 mg/dL (0.55-1.02); Calcium 9.9 mg/dL (8.5-10.1); Chloride 106 mmol/L (98-107); Glucose 110 mg/dL (74-106); Potassium 5.2 mmol/L (3.5-5.1); Sodium 144 mmol/L (136-145); Total Protein 7.9 g/dL (6.4-8.2)
[2023-08-15 10:35] LABS: Hep B Core Antibody Negative (Negative)
[2023-08-15 10:38] LABS: HIV-1/2 Ag & Ab Screen Negative (Negative)
[2023-08-15 10:47] LABS: Hepatitis C Ab w Rflx HCV PCR Negative (Negative)
[2023-08-15 10:48] LABS: Syphilis Serology (RPR) Negative (Negative)
[2023-08-17 11:34] LABS: Chlamydia Result Invalid (Negative); GC Result Invalid (Negative)
== END 2023-08-14 10:41 | disposition home or self-care (01) ==
LOC: NCHCN 10:40
PROVIDERS: PCP Registered Nurse; Visit Provider Nurse Practitioner Family
DX: R94.5 Abnormal results of liver function studies (principal); Y07.499 Other family member, perpetrator of maltreatment and neglect
CPT/HCPCS: 80053; 86704; 86803; 87389; 87491; 87591; 86592

== ENCOUNTER 2023-08-20 12:35 | Outpatient (REF) | payer MEDICARE, SELFPAY ==
[2023-08-21 14:15] LABS: Chlamydia Result Negative (Negative); GC Result Negative (Negative)
== END 2023-08-20 12:36 | disposition home or self-care (01) ==
LOC: NCHCN 12:35
PROVIDERS: PCP Registered Nurse; Visit Provider Nurse Practitioner Family
DX: R39.89 Other symptoms and signs involving the genitourinary system (principal); R82.998 Other abnormal findings in urine; Y07.499 Other family member, perpetrator of maltreatment and neglect
CPT/HCPCS: 87491; 87591; 87086

== ENCOUNTER 2023-09-06 11:55 | Outpatient (REF) | payer MEDICARE, SELFPAY | END 2023-09-06 11:56 | disposition home or self-care (01) | LOC: LBN 11:55 | PROVIDERS: PCP Registered Nurse; Visit Provider Obstetrics & Gynecology | DX: N76.0 Acute vaginitis (principal) | CPT/HCPCS: 87480; 87510; 87660 ==

== ENCOUNTER → 2023-11-20 04:39 | Outpatient (CLI) | payer MEDICARE, SELFPAY ==
--- NOTE | 2023-11-20 | DI.CTLCSR_ITS ---
Exam(s) CT CHEST LUNG CANCER SCREEN EXAM: CT CHEST LUNG CANCER SCREEN CLINICAL HISTORY: PERS HX NICOTINE DEPENDENCE Z87.891 SCREENING FOR LUNG CANCER TECHNIQUE: Imaging Protocol: Axial computed tomography images with coronal and sagittal reformatted images were created and reviewed COMPARISON: CT CT ABDOMEN W from 07/05/[address] CHEST/ABD/PEL W from 11/27/2018 FINDINGS: Tracheobronchial tree: Patent where visualized. Pulmonary parenchyma: No consolidation or dominant measurable mass. Atelectasis or scarring is seen i n the right middle lobe. No focal consolidating infiltrates are present. Lung Nodules: There is a stable 2 mm nodule in the lateral aspect of the left upper lobe (series 3, i mage 148). There is a stable 3 mm nodule in the posterior aspect of the right lower lobe (series 3, image 259). Mediastinum and Lachelle: No dominant adenopathy or fluid collection. The esophagus is unremarkable.Posts urgical changes are seen at the gastroesophageal junction. Thyroid gland: Unremarkable. Lymph nodes: Unremarkable. Pleura: No effusion or pneumothorax. Heart: The heart is not dilated. Coronary artery calcifications are present. No pericardial effusion . Aorta: Thoracic aorta non-dilated.Atherosclerotic calcifications are present. Upper abdomen: Unremarkable. Soft Tissues: Unremarkable. Bones: Within normal limits for the patient's age. IMPRESSION: Stable pulmonary nodules. No new pulmonary nodules. Lung RADS Cat 2 - Benign Appearance / Behavior: Nodules with a very low likelihood of becoming a clin ically active cancer due to size or lack of growth Lung-RADS 1.0 CATEGORIES: Category 0 - Prior chest CT exam(s) being located for comparison. Category 1 - Annual screening in 12 months. No nodules or definitely benign nodules. Category 2 - Annual screening in 12 months. Benign appearance. Nodules with low likelihood of becomin g active cancer. Category 3 - 6-month follow-up. Probably benign. Short-term follow-up suggested. Nodules with low lik elihood of becoming active cancer. Category 4A - 3-month follow-up and CT/PET if >8 mm in size. Suspicious finding. Findings which requi re additional testing. Category 4B - Findings which require additional testing and tissue sampling. Suspicious finding. Category 4X - Category 3 or 4 nodules with additional features or imaging findings that increases the suspicion of malignancy. Modifier S- Potentially clinically significant finding. (Non lung cancer) RADIATION DOSE DELIVERED: 76.01mGy.cm Total DLP 76.01mGy.cmTotal DLP 76.01mGy.cm Total DLP 76.01mGy.cmTotal DLP DATA REPOSITORY: All CT scans at this facility are submitted to the National Radiology Data Registry (NRDR) Dose Index Registry (DIR) with the [employer] (ACR). RADIATION OPTIMIZATION: All CT scans at this facility use at least one of these dose optimization te chniques: automated exposure control; mA and/or kV adjustment per patient size (includes targeted exa ms where dose is matched to clinical indication); or iterative reconstruction.
== END ==
PROVIDERS: PCP Nurse Practitioner Family; Visit Provider Nurse Practitioner Family
DX: Z87.891 Personal history of nicotine dependence (principal); Z12.2 Encounter for screening for malignant neoplasm of respiratory organs; R91.1 Solitary pulmonary nodule
CPT/HCPCS: 71271

== ENCOUNTER 2023-12-03 18:07 | Outpatient (REF) | payer MEDICARE, SELFPAY | END 2023-12-03 18:08 | disposition home or self-care (01) | LOC: NCHCN 18:07 | PROVIDERS: PCP Nurse Practitioner Family; Visit Provider Nurse Practitioner Family | DX: R30.0 Dysuria (principal); B96.29 Other Escherichia coli [E. coli] as the cause of diseases classified elsewhere | CPT/HCPCS: 87077; 87086; 87186 ==

== ENCOUNTER 2024-03-11 18:29 | Outpatient (REF) | payer MEDICARE, SELFPAY ==
--- OUTSIDE RECORDS SUMMARY | 2024-03-11 18:31 | XMS_ITS | Encounter Summary ---
Author Organization [facility] Address [address] [place] [address] Care Team Providers Care Screen And Cyclone Repairer Name Role Phone Unavailable Primary Care Provider Unavailabl e Encounter Details Date Type Department Care Team (Late st Contact Info) Description 08/20/2023 Lab Requisition [facility] Pathology & Laboratory Medicine - [facility] [address] [place] [address] Outr Resulting Lab, Provider Social History Tobacco Use Types Packs/Day Years Used Date Smoking Tobacco: Never Assessed Sex and Gender Information Value Date Recorded Sex Assigned at Not on file Gender Identity Not on file Sexual Orientation Not on file documented as of this encounter Plan of Treatment Not on file documented as of this encounter Procedures Procedure Name Priority Date/Time Associated Diagnosis Comments CHLAMYDIA/N. GONORRHOEAE AMPLIFIED NUCLEIC ACID Routine 08/20/2023 11:50 EST documented in this encounter Results * CHLAMYDIA/N. GONORRHOEAE AMPLIFIED RNA (08/20/2023 11:50 EST) Neisseria gonorrhoeae Result Negative Negative 08/21/2023 14:10 EST [facility] Chlamydia trachomatis Result Negative Negative 08/21/2023 14:10 EST [facility] Swab VAGINAL STRUCTURE / Unknown 08/20/2023 11:50 EST 08/20/2023 22:03 EST Provider Outr Resulting Lab MICROBIOLOGY - GENERAL ORDERABLES [facility] [address] [place] [address] documented in this encounter Visit Diagnoses Not on filedocumented in this encounter
--- OUTSIDE RECORDS SUMMARY | 2024-03-11 18:31 | XMS_ITS | Referral Summary ---
Author Organization [facility] Address [address] [place] [address] Care Team Providers Care Telegraph And Teletype Operator Name Role Phone Unavailable Primary Care Provider Unavailabl e Social History Tobacco Use Types Packs/Day Years Used Date Smoking Tobacco: Never Assessed Sex and Gender Information Value Date Recorded Sex Assigned at Not on file Gender Identity Not on file Sexual Orientation Not on file Plan of Treatment Not on file Procedures Procedure Name Priority Date/Time Associated Diagnosis Comments HEPATITIS C AB W REFLEX TO HCV RNA BY PCR Routine 08/14/2023 9:10 EST from Last 3 Months or Most Recently Relevant to Health Maintenance Results * HEPATITIS C AB W REFLEX TO HCV RNA BY PCR (08/14/2023 9:10 EST) Hep C Antibody Negative Negative 08/15/2023 10:42 EST [facility] Blood VENOUS BLOOD / Unknown 08/14/2023 9:10 EST 08/14/2023 21:46 EST Provider Outr Resulting Lab CHEMISTRY & BLOOD GAS ORDERABLES [facility] [address] [place] [address] from Last 3 Months or Most Recently Relevant to Health Maintenance
--- OUTSIDE RECORDS SUMMARY | 2024-03-11 18:31 | XMS_ITS | Encounter Summary ---
Author Organization [facility] Address [address] [place] [id number] Care Team Providers Care Salesperson Handbags Name Role Phone Unavailable Primary Care Provider Unavailabl e Encounter Details Date Type Department Care Team (Late st Contact Info) Description 08/14/2023 Lab Requisition [facility] Pathology & Laboratory Medicine - [facility] [address] [place] [address] Outr Resulting Lab, Provider Social History Tobacco [...] Procedure Name Priority Date/Time Associated Diagnosis Comments HIV 1/2 ANTIGEN AND ANTIBODY, 4TH GENERATION Routine 08/14/2023 9:10 EST documented in this encounter Results * HIV 1/2 ANTIGEN AND ANTIBODY, 4TH GENERATION (08/14/2023 9:10 EST) HIV 1 and 2 Antibody/p24 Antigen, 4th Generation Negative Negative 08/15/2023 10:[address] [facility] Comment:If acute HIV-1 infec tion is suspected in a high risk patient, submit plasma specimen for HIV-1 RNA quantitation test. Blood VENOUS BLOOD / Unknown 08/14/2023 9:10 EST 08/14/2023 21:[address] [facility] - 08/15/2023 10:33 EST Fourth Generation assay performed on the Siemens Centaur XPT. Provider Outr Resulting Lab IMMUNOLOGY A ND SEROLOGY ORDERABLES [facility] [address] [place] [address] documented in this encounter Visit Diagnoses Not on filedocumented in this encounter
--- OUTSIDE RECORDS SUMMARY | 2024-03-11 18:31 | XMS_ITS | Encounter Summary ---
Author Organization [facility] Address [address] [place] [address] Care Team Providers Care Parts Cataloger Name Role Phone Unavailable Primary Care Provider Unavailabl e Encounter Details Date Type Department Care Team (Late st Contact Info) Description 08/14/2023 Lab Requisition [facility] Pathology & Laboratory Medicine - [facility] [address] [place] [address] Outr Resulting Lab, Provider Social History Tobacco [...] Procedure Name Priority Date/Time Associated Diagnosis Comments SYPHILIS SEROLOGY Routine 08/14/2023 9:10 EST documented in this encounter Results * SYPHILIS SEROLOGY (08/14/2023 9:10 EST) Syphilis Serology Negative Negative 08/15/2023 10:43 EST [facility] Blood VENOUS BLOOD / Unknown 08/14/2023 9:10 EST 08/14/2023 21:46 EST Provider Outr Resulting Lab IMMUNOLOGY A ND SEROLOGY ORDERABLES [facility] [address] [place] [address] documented in this encounter Visit Diagnoses Not on filedocumented in this encounter
--- OUTSIDE RECORDS SUMMARY | 2024-03-11 18:31 | XMS_ITS | Encounter Summary ---
Author Organization [facility] Address [address] [place] [address] Care Team Providers Care Log Handler Name Role Phone Unavailable Primary Care Provider Unavailabl e Encounter Details Date Type Department Care Team (Late st Contact Info) Description 08/14/2023 Lab Requisition [facility] Pathology & Laboratory Medicine - [facility] [address] [place] [address] Outr Resulting Lab, Provider Social History Tobacco [...] Comments CHLAMYDIA/N. GONORRHOEAE AMPLIFIED NUCLEIC ACID Routine 08/14/2023 9:10 EST documented in this encounter Results * CHLAMYDIA/N. GONORRHOEAE AMPLIFIED RNA (08/14/2023 9:10 EST) Neisseria gonorrhoeae Result Invalid Negative 08/16/2023 15:15 EST [facility] Comment:An INVALID or INDETE RMINATE result for this test is an indicator that the sample was not suitable for testing after running the test twice. It is not a lab error. Either there was no DNA or RNA in the sample or there was an interfering substance (e.g. mucus) that prevented detection of any human or viral DNA or RNA. Recollection of the specimen should be considered. Chlamydia trachomatis Result Invalid Negative 08/16/2023 15:15 EST [facility] Comment:An INVALID or INDETE RMINATE result for this test is an indicator that the sample was not suitable for testing after running the test twice. It is not a lab error. Either there was no DNA or RNA in the sample or there was an interfering substance (e.g. mucus) that prevented detection of any human or viral DNA or RNA. Recollection of the specimen should be considered. Swab VAGINAL STRUCTURE / Unknown 08/14/2023 9:10 EST 08/14/2023 22:36 EST Provider Outr Resulting Lab MICROBIOLOGY - GENERAL ORDERABLES [facility] [address] [place] [address] documented in this encounter Visit Diagnoses Not on filedocumented in this encounter
--- OUTSIDE RECORDS SUMMARY | 2024-03-11 18:31 | XMS_ITS | Encounter Summary ---
Author Organization [facility] Address [address] [place] [address] Care Team Providers Care Finish Inspector Name Role Phone Unavailable Primary Care Provider Unavailabl e Encounter Details Date Type Department Care Team (Late st Contact Info) Description 08/14/2023 Lab Requisition [facility] Pathology & Laboratory Medicine - [facility] [address] [place] [address] Outr Resulting Lab, Provider Social History Tobacco [...] RNA BY PCR Routine 08/14/2023 9:10 EST HEPATITIS B CORE ANTIBODY (TOTAL) Routine 08/14/2023 9:10 EST documented in this encounter Results * HEPATITIS B CORE ANTIBODY (TOTAL) (08/14/2023 9:10 EST) Hepatitis B Core Ab, Total Negative Negative 08/15/2023 10:30 EST [facility] Blood VENOUS BLOOD / Unknown 08/14/2023 9:10 EST 08/14/2023 21:46 EST Provider Outr Resulting Lab CHEMISTRY & BLOOD GAS ORDERABLES [facility] [address] [place] [address] * HEPATITIS C AB W REFLEX TO HCV RNA BY PCR (08/14/2023 9:10 EST) Hep C Antibody Negative Negative 08/15/2023 10:42 EST [facility] Blood VENOUS BLOOD / Unknown 08/14/2023 9:10 EST 08/14/2023 21:46 EST Provider Outr Resulting Lab CHEMISTRY & BLOOD GAS ORDERABLES [facility] [address] [place] [address] documented in this encounter Visit Diagnoses Not on filedocumented in this encounter
--- OUTSIDE RECORDS SUMMARY | 2024-03-11 18:31 | XMS_ITS | Clinical Summary ---
Author Organization [facility] Address [address] [place] [id number] Care Team Providers Care Car Pilot Name Role Phone Unavailable Primary Care Provider Unavailabl e Social History Tobacco Use Types Packs/Day Years Used Date Smoking Tobacco: Never Assessed Sex and Gender Information Value Date Recorded Sex Assigned at Not on file Gender Identity Not on file Sexual Orientation Not on file Plan of Treatment Health Maintenance Due Date Last Done Comments RSV Immunization ( o r 60+ Years) (1 - 1-dose 60+ series) 2010 Fall Risk Screening 2015 COVID-19 Vaccine ( season) 2023 Hepatitis C Screen Completed 08/14/2023 Procedures Procedure Name Priority Date/Time Associated Diagnosis Comments HEPATITIS C AB W REFLEX TO HCV RNA BY PCR Routine 08/14/2023 9:10 EST from Last 3 Months or Most Recently Relevant to Health Maintenance Results * HEPATITIS C AB W REFLEX TO HCV RNA BY PCR (08/14/2023 9:10 EST) Hep C Antibody Negative Negative 08/15/2023 10:42 EST [facility] Blood VENOUS BLOOD / Unknown 08/14/2023 9:10 EST 08/14/2023 21:46 EST Provider Outr Resulting Lab CHEMISTRY & BLOOD GAS ORDERABLES [facility] [address] [place] [address] from Last 3 Months or Most Recently Relevant to Health Maintenance
== END 2024-03-11 18:30 | disposition home or self-care (01) ==
LOC: LBN 18:29
PROVIDERS: PCP Nurse Practitioner Family; Visit Provider Obstetrics & Gynecology
DX: N89.8 Other specified noninflammatory disorders of vagina (principal)
CPT/HCPCS: 87480; 87510; 87660

== ENCOUNTER 2024-05-26 13:34 | Outpatient (REF) | payer MEDICARE, SELFPAY ==
[2024-05-26 15:34] LABS: ALT 31 U/L (14-59); AST 32 U/L (15-37); Albumin 3.4 g/dL (3.4-5.0); Alkaline Phosphatase 104 U/L (46-116); Anion Gap 7.8 mmol/L (3-11); BUN 14 mg/dL (7-18); Bilirubin, Total 0.41 mg/dL (0.2-1.0); CO2 28.2 mmol/L (21.0-32.0); CREATININE 0.9 mg/dL (0.55-1.02); Calcium 9.6 mg/dL (8.5-10.1); Chloride 111 mmol/L (98-107); Glucose 111 mg/dL (74-106); Potassium 5.4 mmol/L (3.5-5.1); Sodium 147 mmol/L (136-145); Total Protein 7.5 g/dL (6.4-8.2)
== END 2024-05-26 13:35 | disposition home or self-care (01) ==
LOC: NCHCN 13:34
PROVIDERS: PCP Nurse Practitioner Family; Visit Provider Nurse Practitioner Family
DX: N95.1 Menopausal and female climacteric states (principal)
CPT/HCPCS: 80053

== ENCOUNTER 2024-06-19 13:48 | Outpatient (CLI) | payer MEDICARE, SELFPAY ==
[2024-06-19 13:51] LABS: ALT 30 U/L (14-59); AST 23 U/L (15-37); Albumin 3.6 g/dL (3.4-5.0); Alkaline Phosphatase 105 U/L (46-116); Anion Gap 10.1 mmol/L (3-11); BUN 12 mg/dL (7-18); Bilirubin, Total 0.45 mg/dL (0.2-1.0); CO2 26.9 mmol/L (21.0-32.0); CREATININE 0.8 mg/dL (0.55-1.02); Calcium 9.7 mg/dL (8.5-10.1); Chloride 107 mmol/L (98-107); Estimated GFR 77.75 (mL/min/1.73m2); Glucose 91 mg/dL (74-106); Potassium 4.1 mmol/L (3.5-5.1); Sodium 144 mmol/L (136-145); Total Protein 7.7 g/dL (6.4-8.2)
[2024-06-19 14:05] LABS: Hemoglobin A1C 5.6 % (<5.7)
== END 2024-06-19 13:49 | disposition home or self-care (01) ==
LOC: LBO 13:50
PROVIDERS: Obstetrics & Gynecology; PCP Nurse Practitioner Family; Visit Provider Nurse Practitioner Family
DX: R23.2 Flushing (principal); R73.9 Hyperglycemia, unspecified; E87.0 Hyperosmolality and hypernatremia
CPT/HCPCS: 36415; 80053; 83036

== ENCOUNTER 2024-06-19 13:52 | Outpatient (REF) | payer MEDICARE, SELFPAY | END 2024-06-19 13:53 | disposition home or self-care (01) | LOC: LBN 13:52 | PROVIDERS: PCP Nurse Practitioner Family; Visit Provider Obstetrics & Gynecology | DX: R30.0 Dysuria (principal); N81.10 Cystocele, unspecified; R32 Unspecified urinary incontinence; N95.2 Postmenopausal atrophic vaginitis; R39.89 Other symptoms and signs involving the genitourinary system | CPT/HCPCS: 87077; 87086; 87186 ==

== ENCOUNTER 2024-08-26 13:19 | Outpatient (REF) | payer MEDICARE, SELFPAY | END 2024-08-26 13:20 | disposition home or self-care (01) | LOC: NCHCN 13:19 | PROVIDERS: PCP Nurse Practitioner Family; Visit Provider Nurse Practitioner Family | DX: R32 Unspecified urinary incontinence (principal); R82.89 Other abnormal findings on cytological and histological examination of urine | CPT/HCPCS: 87086 ==

== ENCOUNTER → 2024-09-22 10:25 | Outpatient (BNVA) | payer MEDICARE, SELFPAY | PROVIDERS: PCP Nurse Practitioner Family; Referring Provider Nurse Practitioner Family; Visit Provider Nurse Practitioner Gerontology | DX: N39.46 Mixed incontinence (principal); Z87.440 Personal history of urinary (tract) infections | CPT/HCPCS: 51798; 99215 ==

== ENCOUNTER 2024-11-06 09:54 | Emergency (ER) | payer MEDICARE, SELFPAY ==
[2024-11-06 10:04] VITALS: BP 110/64; PULSE 67; RESP 16; TEMP 36.9; O2SAT 100
--- NOTE | 2024-11-06 10:39 | ED.GENADUL_ITS ---
Discharge Plan Disposition Patient Disposition: Home Condition: Stable Discharge Details Clinical Impression: Laceration of right middle finger Primary Care Provider: Rachel Melendrez ED Provider: Marcia Peter Home Meds and New Rx's Prescriptions: No Action Veozah 45 mg tablet 45 mg PO DAILY estradiol 10 mcg tablet 10 mcg VAGINAL .q2-3x week Qty: 12 2RF hydroxyzine HCl 25 mg tablet 25 mg PO BID PRN (Reason: itching) Qty: 60 0RF estradiol 0.01 % (0.1 mg/gram) cream 0.25 g vaginal DAILY Qty: 42.5 4RF Rx Instructions: Massage a pea-sized amount around the vaginal opening and urethra. Used 2- 3x/week. mirabegron [Myrbetriq] 50 mg tablet extended release 24 hr 50 mg PO DAILY Qty: 90 3RF omeprazole 20 mg Capsule,Delayed Release(Dr/Ec) 20 mg PO HS acetaminophen [Acetaminophen Extra Strength] 500 mg Tablet PRN Discharge Instructions Instructions: Taking care of cuts, scrapes, and puncture wounds, Laceration Repair With Glue ED Additional Instructions: The glue will slough off on its own in approximately 4 to 6 days. Do not pick at or scrub the glue. Leave the dressing in place for the next 12 to 24 hours. After that you may wash under running soap and water. Allow to air dry at least 1 to 2 hours a day. Return to the ER and be seen again for any signs of infection, red streaks swelling drainage or concerns. Keep covered when outdoors or if the wound will get dirty. Use the finger splint as needed. Follow up with primary care provider in 3-5 days. Return to ED sooner if any worsening or concerns. Thank you for allowing us to care for you today. Referrals: Rachel Melendrez [Primary Care Provider] - 1 week Discharge Data Discharge Date/Time-TO BE ENTERED AT DEPARTURE: 11/06/24 11:01 HPI General Mode of arrival: ambulatory . Date/Time Provider Initiated Documentation: 11/06/24 10:10 . Limitations to Documentation: no limitations . Information obtained by: patient, RN notes reviewed and old records reviewed . HPI Narrative: 74-year-old female presents to the ER with a chief complaint of right middle finger laceration which occurred this morning. Patient was using a mandolin slicer and sliced the end of her middle finger off. Bleeding controlled. Full range of motion intact. No other associated symptoms or concerns. Patient is not on any blood thinners. Related Data Home Medications ?Medication ?Instructions ?Recorded ?Confirmed acetaminophen 500 mg tablet PRN 11/27/18 03/27/24 (Acetaminophen Extra Strength) omeprazole 20 mg capsule,delayed 20 mg PO HS 11/27/18 03/27/24 release estradiol 10 mcg vaginal tablet 10 mcg vaginal .q2-3x week #12 tabs 06/24/24 fezolinetant 45 mg tablet (Veozah) 45 mg PO DAILY PCP is ordering 09/22/24 09/22/24 provider estradiol 0.01% (0.1 mg/gram) 0.25 g vaginal DAILY #42.5 grams 10/23/24 vaginal cream hydroxyzine HCl 25 mg tablet 25 mg PO BID PRN itching #60 tabs 10/23/24 mirabegron 50 mg tablet,extended 50 mg PO DAILY #90 tabs 10/29/24 release 24 hr (Myrbetriq) Previous Rx's ?Medication ?Instructions ?Recorded estradiol 10 mcg vaginal tablet 10 mcg vaginal .q2-3x week #12 tabs 06/24/24 estradiol 0.01% (0.1 mg/gram) 0.25 g vaginal DAILY #42.5 grams 10/23/24 vaginal cream hydroxyzine HCl 25 mg tablet 25 mg PO BID PRN itching #60 tabs 10/23/24 mirabegron 50 mg tablet,extended 50 mg PO DAILY #90 tabs 10/29/24 release 24 hr (Myrbetriq) Allergies Allergy/AdvReac Type Severity Reaction Status Date / Time penicillin V Allergy Severe Anaphylaxsi Unverified 11/06/24 10:07 s General Stated Complaint: Laceration MARLIN: 4 Review of Systems Integumentary/Breasts Skin/Breast: Reports as per HPI and Reports wounds Exam Extrem Right upper extremity: hand Details: laceration 3rd digit palmar aspect distal Details: irregular, avulsion, involving subcutaneous tissue, with motor nerve function intact and with sensation intact Hand/finger images: 2 1. Approximately 5 mm avulsion to the distal tip of her middle finger. Bleeding controlled. Course Vital Signs Vital signs: Vital Signs Temperature 36.9 C 11/06/24 10:04 Pulse 67 11/06/24 10:04 Respiratory Rate 16 11/06/24 10:04 Blood Pressure 110/64 11/06/24 10:04 Pulse Oximetry 100 11/06/24 10:04 Temperature 36.9 C 11/06/24 10:04 Pulse 67 11/06/24 10:04 Respiratory Rate 16 11/06/24 10:04 Blood Pressure 110/64 11/06/24 10:04 Pulse Oximetry 100 11/06/24 10:04 Oxygen Delivery Method Room Air 11/06/24 10:04 Oxygen Flow Rate 0 11/06/24 10:04 Medical Decision Making 74-year-old female presents to the ER with a chief complaint of right middle finger laceration which occurred this morning. Patient was using a mandolin slicer and sliced the end of her middle finger off. Bleeding controlled. Full range of motion intact. No other associated symptoms or concerns. Patient is not on any blood thinners. Laceration repaired with Dermabond or tissue adhesive. Xeroform gauze applied, wrapped with Kerlix. Finger baseball splint applied. Laceration at this time is nonsuturable. Did explain that to the patient. Discussed home care, will instruct to keep the dressing on for the next 12 to 24 hours. Thereafter may wash under running soap and water. Allow the Dermabond to fall off on its own watch for signs of infection return for any concerns. This text was generated using [employer] dictation system, please disregard any oddities of phrase or misspellings. Quality:SDOH Health Related Social Needs: 2 No Data to Display PFSH All Active Problems (Updated 11/06/24 @ 10:44 by Marcia Peter NP) Laceration of right middle finger (Acute) Mixed stress and urge urinary incontinence (Acute) Bladder pain (Acute) Prolapse of anterior vaginal wall (Acute) 70mm ring pessary placed 03/27/24 Tried #3 and #4 incontinence dish Incontinence of urine (Acute) Hot flashes (Acute) Atrophic vaginitis (Acute) Social History Smoking/Tobacco Use Status: Former Tobacco Use Smoking risk assessment performed?: Yes Alcohol Intake: current Alcohol Intake frequency: holidays/special occasions only Drug use: Never Substance use type: does not use Do you feel safe at home: Yes Do you feel safe in your relationship?: Yes History History 2 3 Para 3 Hx # Term Pregnancies 3 Multiple births Hx # Pregnancies Ectopic pregnancies AB induced Hx Number of Living Children 3 AB spontaneous
== END 2024-11-06 11:01 | disposition home or self-care (01) ==
LOC: ER 11:06
PROVIDERS: Emergency Provider Registered Nurse Emergency; PCP Nurse Practitioner Family
DX: S61.212A Laceration without foreign body of right middle finger without damage to nail, initial encounter (principal); Z87.891 Personal history of nicotine dependence; W27.4XXA Contact with kitchen utensil, initial encounter; Y93.89 Activity, other specified
CPT/HCPCS: 12001; 99283

== ENCOUNTER → 2024-12-09 08:13 | Outpatient (BNVA) | payer MEDICARE, SELFPAY | PROVIDERS: PCP Nurse Practitioner Family; Visit Provider Nurse Practitioner Gerontology | DX: N39.46 Mixed incontinence (principal); R39.9 Unspecified symptoms and signs involving the genitourinary system | CPT/HCPCS: 99213; 51798 ==

== ENCOUNTER 2024-12-25 01:15 | Outpatient (CLI) | payer MEDICARE, SELFPAY ==
--- NOTE | 2024-12-25 | DI.DEXA_ITS ---
Exam(s) XR DEXA BONE DENSITY W/WO JOSE LUIS EXAM: XR DEXA BONE DENSITY W/WO JOSE LUIS CLINICAL HISTORY: Age-related osteoporosis wo current pathological fx, M81.0 TECHNIQUE: COMPARISON: No exams were available for comparison FINDINGS: Lateral Spine Image: Unremarkable. No compression deformities identified. Left forearm hip: Total T-Score: -3.1 Total Z-Score: -0.7 T- and Z-scores: Findings are consistent with osteoporosis. Lumbar Spine: Total T-Score: -1.0 Total Z-Score: 1.3 T- and Z-scores: Within normal limits. IMPRESSION: Findings of osteoporosis in the left forearm.
== END 2024-12-25 01:35 ==
LOC: DI 01:15
PROVIDERS: PCP Nurse Practitioner Family; Visit Provider Nurse Practitioner Family
DX: M81.0 Age-related osteoporosis without current pathological fracture (principal)
CPT/HCPCS: 77080

== ENCOUNTER 2025-03-31 16:54 | Outpatient (REF) | payer MEDICARE, SELFPAY ==
[2025-03-31 16:06] LABS: HCT 40.3 % (36.0-46.0); HGB 13.1 g/dL (11.2-15.7); MCH 30.1 pg (27.0-33.0); MCHC 32.5 % (32.0-36.0); MCV 93 fL (80-95); MPV 11.3 fL (8.0-11.0); Platelet Count 297 10^3/uL (130-400); RBC 4.35 10^6/uL (3.93-5.22); RDW 13.7 % (11.7-14.6); RDW-SD 46.9 fL; WBC 7.80 10^3/uL (4.4-10.8)
[2025-03-31 16:54] LABS: ALT 28 U/L (14-59); AST 34 U/L (15-37); Albumin 3.3 g/dL (3.4-5.0); Alkaline Phosphatase 90 U/L (46-116); Anion Gap 7.5 mmol/L (3-11); BUN 15 mg/dL (7-18); Bilirubin, Total 0.5 mg/dL (0.2-1.0); CO2 28.5 mmol/L (21.0-32.0); Calcium 9.0 mg/dL (8.5-10.1); Calculated LDL 93 mg/dL (<100); Chloride 106 mmol/L (98-107); Cholesterol 158 mg/dL (<200); Estimated GFR 94.13 (mL/min/1.73m2); Glucose 78 mg/dL (74-106); HDL Cholesterol 54 mg/dL (>or=50); Potassium 4.1 mmol/L (3.5-5.1); Sodium 142 mmol/L (136-145); Total Protein 7.1 g/dL (6.4-8.2); Triglyceride 59 mg/dL (<150); Vitamin D 25 Total 80 ng/mL (30-100)
[2025-04-01 14:46] LABS: Hemoglobin A1C 5.3 % (<5.7)
== END 2025-03-31 16:55 | disposition home or self-care (01) ==
LOC: NCHCN 16:54
PROVIDERS: PCP Nurse Practitioner Family; Visit Provider Nurse Practitioner Family
DX: M81.0 Age-related osteoporosis without current pathological fracture (principal); Z13.1 Encounter for screening for diabetes mellitus; Z51.81 Encounter for therapeutic drug level monitoring; Z13.220 Encounter for screening for lipoid disorders
CPT/HCPCS: 80053; 80061; 82306; 85027; 83036

== ENCOUNTER 2025-04-06 15:54 | Outpatient (REF) | payer MEDICARE, SELFPAY ==
[2025-04-07 13:18] LABS: Bacterial Vaginosis (BV) Positive (Negative); Candida glabrata Negative (Negative); Candida species group Negative (Negative)
== END 2025-04-06 15:55 | disposition home or self-care (01) ==
LOC: NCHCN 15:54
PROVIDERS: PCP Nurse Practitioner Family; Visit Provider Nurse Practitioner Family
DX: R35.0 Frequency of micturition (principal)
CPT/HCPCS: 81513; 87077; 87481; 87661; 87086; 87186

== ENCOUNTER 2025-04-29 00:08 | Outpatient (CLI) | payer OTHER, SELFPAY ==
--- NOTE | 2025-04-29 12:30 | DI.RAD_ITS ---
Exam(s) XR FOOT LT COMPLETE EXAM: XR FOOT LT COMPLETE CLINICAL HISTORY: Left foot pain,m79.672. TECHNIQUE: 2D digital imaging was performed of the left foot. Three images were obtained. AP, oblique and lateral views were obtained. COMPARISON: No exams were available for comparison FINDINGS: BONES: No acute fracture is present. No bony destructive lesion is seen. There is an enthesophyte at the posterior calcaneus. JOINTS: No dislocation present. Mild degenerative changes are seen at the 1st MTP joint characterized by joint space narrowing and osteophytes. The joint spaces are otherwise well maintained. SOFT TISSUE: Normal. IMPRESSION: Degenerative changes of the left foot as described. DATA REPOSITORY: RADIATION DOSE DELIVERED:
--- NOTE | 2025-04-29 12:32 | DI.RAD_ITS ---
Exam(s) XR FOOT RT COMPLETE EXAM: XR FOOT RT COMPLETE CLINICAL HISTORY: Right foot pain,m79.671. TECHNIQUE: 2D digital imaging was performed of the right foot. Three images were obtained. AP, oblique and lateral views were obtained. COMPARISON: No exams were available for comparison FINDINGS: BONES: No acute fracture is present. No bony destructive lesion is seen. There is an enthesophyte at the posterior calcaneus. There is a small plantar calcaneal spur. There is a hammertoe deformity of the 2nd toe. JOINTS: No dislocation present. SOFT TISSUE: Normal. IMPRESSION: 1. Calcaneal spurs. 2. No acute abnormality. DATA REPOSITORY: RADIATION DOSE DELIVERED:
== END 2025-04-29 00:28 ==
PROVIDERS: PCP Nurse Practitioner Family; Visit Provider Podiatrist
DX: M79.672 Pain in left foot (principal); M79.671 Pain in right foot; M19.072 Primary osteoarthritis, left ankle and foot
CPT/HCPCS: 73630

== ENCOUNTER 2025-05-29 11:51 | Outpatient (REF) | payer OTHER, SELFPAY | END 2025-05-29 11:52 | disposition home or self-care (01) | LOC: LBN 11:51 | PROVIDERS: PCP Nurse Practitioner Family; Visit Provider Obstetrics & Gynecology | DX: R30.0 Dysuria (principal); N94.9 Unspecified condition associated with female genital organs and menstrual cycle | CPT/HCPCS: 87077; 87086; 87186; 87480; 87510; 87660 ==

== ENCOUNTER 2025-07-01 15:27 | Outpatient (REF) | payer OTHER, SELFPAY ==
[2025-07-01 21:23] LABS: HCT 42.5 % (36.0-46.0); HGB 13.8 g/dL (11.2-15.7); MCH 29.7 pg (27.0-33.0); MCHC 32.5 % (32.0-36.0); MCV 92 fL (80-95); MPV 11.8 fL (8.0-11.0); Platelet Count 275 10^3/uL (130-400); RBC 4.64 10^6/uL (3.93-5.22); RDW 13.2 % (11.7-14.6); RDW-SD 44.2 fL; WBC 7.94 10^3/uL (4.4-10.8)
[2025-07-01 21:40] LABS: Vitamin B12 1764 pg/mL (211-911)
[2025-07-01 21:45] LABS: ALT 18 U/L (10-49); AST 24 U/L (<34); Albumin 4.0 g/dL (3.2-5.0); Alkaline Phosphatase 97 U/L (46-116); Anion Gap 9 mmol/L (3-11); BUN 12 mg/dL (9-23); Bilirubin, Total 0.4 mg/dL (0.2-1.2); CO2 27.0 mmol/L (20.0-31.0); Calcium 9.5 mg/dL (8.3-10.6); Chloride 108 mmol/L (98-107); Glucose 71 mg/dL (74-106); Potassium 4.1 mmol/L (3.5-5.1); Sodium 144 mmol/L (136-145); Total Protein 7.3 g/dL (5.7-8.2)
== END 2025-07-01 15:28 | disposition home or self-care (01) ==
LOC: NCHCN 15:27
PROVIDERS: PCP Nurse Practitioner Family; Visit Provider Nurse Practitioner Family
DX: R07.9 Chest pain, unspecified (principal); F03.A4 Unspecified dementia, mild, with anxiety
CPT/HCPCS: 80053; 85027; 82607